=== PATIENT | male | born 1985 | race Caucasian/White ===

== ENCOUNTER → 2019-07-27 | Outpatient (CLI) | payer SELFPAY ==
[~2019-07-27] MED LIST: CRUTCH4 USE
== END | disposition home or self-care (01) ==
LOC: LAB SHORT 18:05 → LAB 18:05
DX: L08.9 Local infection of the skin and subcutaneous tissue, unspecified (principal)
CPT/HCPCS: 87070; 87077; 87147; 87186; 87205

== ENCOUNTER 2020-04-20 13:39 | Day surgery (SDC) | payer BC ==
[~2020-04-20] VITALS: Ht 177.8 cm; Wt 106.1 kg
[~2020-04-20 13:39] MED LIST changes: +Mobic15 MG PO
--- NOTE | 2020-04-20 16:36 | NUR ---
04/20/20 1636 Gena Lynne PATIENT STILL SLEEPING. DOES NOT WAKE WITH GENTLE NUDGING AND TALKING WITH HIM. VITAL SIGNS ARE ALL STABLE AT THIS TIME
--- NOTE | 2020-04-20 17:04 | NUR ---
04/20/20 1704 Gena Lynne PATIENT AWAKE, ALERT AND ANSWERING ALL QUESTIONS APPROPRIATELY. PATIENT VERBALIZED HE WAS READY TO GO HOME BASICALLY SOON WE WENT INTO STEPD[place]. DISCHARGE [id number] DISCUSSED AND PATIENT ABLE TO DRESS TO GO HOME. PATIENT DISCHARGED IN STABLE CONDITION
== END 2020-04-20 17:13 | disposition home or self-care (01) ==
LOC: ORSCSDS 13:39
PROVIDERS: Orthopaedic Surgery
PROC: 0SBG4ZZ Excision of Left Ankle Joint, Percutaneous Endoscopic Approach (ICD-10-PCS; principal; 2020-04-20 14:45)
DX: M19.072 Primary osteoarthritis, left ankle and foot (principal); M25.772 Osteophyte, left ankle; M93.272 Osteochondritis dissecans, left ankle and joints of left foot; M94.272 Chondromalacia, left ankle and joints of left foot; E66.9 Obesity, unspecified; Z68.33 Body mass index [BMI] 33.0-33.9, adult
CPT/HCPCS: J0171; J0690; J1100; J1885; J2250; J2405; J2704; J2795; J3010; J7120